=== PATIENT | male | born 1955 | race Asian ===

== ENCOUNTER 2018-03-26 21:24 | Emergency (ER) | payer MEDICARE, MEDICAID ==
[~2018-03-26] VITALS: Ht 170.2 cm; Wt 74.8 kg
[~2018-03-26 21:24] MED LIST: MECLIZINE HCL25 MG ORAL
[2018-03-26] MEDS ORDERED: Meclizine 25mg tab ORAL ONE (21:45)
[2018-03-26 21:47] VITALS: BP 151/98
[2018-03-26] MEDS ORDERED: MECLIZINE HCL25 MG ORAL (22:06)
[2018-03-26 22:22] VITALS: BP 151/75
--- NOTE | 2018-03-27 01:14 | Emergency Room Report ---
History of Present Illness General Chief Complaint: Dizziness Source: EMS Present Illness HPI Patient is a 63year-old male presented after increased dizziness. Patient gradual onset of symptoms. He reports having increased dizziness with head movements. He had taken meclizine prior to arrival. Patient had prior history of positional vertigo. He denies any recent hearing changes. He denies any weakness. He had not been vomiting. Allergies: Coded Allergies: No Known Allergies (Unverified , 03/26/18) Patient History Reviewed Nursing Documentation: PMH: Agreed; PSxH: Agreed Nursing Documentation-PMH Past Medical History: No Stated History Review of Systems All Other Systems: negative except mentioned in HPI Physical Exam Vital Signs Date Time Temp Pulse Resp B/P (MAP) Pulse Ox O2 Delivery O2 Flow Rate FiO2 03/26/18 21:12 98.2 90 18 156/106 98 Room Air 98.2 Sp02 EP Interpretation: reviewed, normal General Appearance: normal inspection, well appearing, no apparent distress, alert, non-toxic Head: atraumatic ENT: normal ENT inspection, hearing grossly normal, normal voice Neck: normal inspection, full range of motion, supple, no bony tend Respiratory: normal inspection, lungs clear, normal breath sounds, no respiratory distress, no retraction, no wheezing Cardiovascular #1: regular rate, rhythm, no edema Gastrointestinal: normal inspection, normal bowel sounds, non tender, soft, no guarding, no hernia Genitourinary: no CVA tenderness Musculoskeletal: normal inspection, back normal, normal range of motion Neurologic: normal inspection, alert, oriented x3, responsive, o and m supervisor III-XII nml as tested, speech normal Psychiatric: normal inspection, judgement/insight normal, mood/affect normal Skin: normal inspection, normal color, no rash Medical Decision Making Diagnostic Impression: Primary Impression: Dizziness Additional Impression: Vertigo ER Course Patient presented for dizziness. Differential diagnosis included was not limited to CVA, vertebrobasilar insufficiency, myocardial infarction, benign positional vertigo, labyrinthitis, aspirin overdose among others. The patient has exam consistent with peripheral vertigo likely do to benign positional vertigo. Patient was given oral meclizine. Patient had improvement in symptoms.The patient was discharged home to follow-up with his primary care physician.The patient is advised to follow up with primary care doctor in 1-2 days. Patient is advised to return if any worsening condition or if any changes in status that are concerning. This report is dictated with [employer] stereo compiler software which may occasionally lead to discrepancies related to use of this software. Last Vital Signs Date Time Temp Pulse Resp B/P (MAP) Pulse Ox O2 Delivery O2 Flow Rate FiO2 03/26/18 22:22 97.2 78 16 151/75 03/26/18 21:47 96 Room Air Status: improved Disposition: HOME, SELF-CARE Condition: Stable Scripts Meclizine Hcl* (MECLIZINE*) 25 Mg Tablet 25 MG ORAL THREE TIMES A DAY, #20 TAB Prov: Yahir Cleveland MD 03/26/18 Referrals: NOT CHOSEN IPA/,REFERRING (PCP) Patient Instructions: Vertigo Yahir Cleveland MD Mar 27, 2018 01:14
== END 2018-03-26 23:00 | disposition home or self-care (01) ==
LOC: EDBD 21:24 → EMR 22:32
DX: R42 Dizziness and giddiness (principal)
CPT/HCPCS: 93005; 99283